=== PATIENT | female | born 1975 | race Two or more races ===

== ENCOUNTER 2021-07-05 10:55 | Emergency (ER) | payer SELFPAY ==
[~2021-07-05] VITALS: Ht 162.6 cm; Wt 68.0 kg
[2021-07-05] MEDS ORDERED: ACYCLOVIR400 MG PO (11:19)
== END 2021-07-05 11:30 | disposition home or self-care (01) ==
LOC: ER 11:12
DX: L25.9 Unspecified contact dermatitis, unspecified cause (principal); K13.70 Unspecified lesions of oral mucosa; F17.210 Nicotine dependence, cigarettes, uncomplicated
CPT/HCPCS: 99283